=== PATIENT | female | born 1980 | race Caucasian/White ===

== ENCOUNTER 2022-08-15 14:48 | Emergency (ER) | payer MEDICAID ==
[~2022-08-15] VITALS: Ht 162.6 cm; Wt 102.0 kg
[2022-08-15 14:48] VITALS: BP 161/99
[2022-08-15] MEDS ORDERED: sulfamethoxazole/trimethoprim DS (800/160mg) tablet PO ONE (16:20)
[2022-08-15] MEDS ORDERED: cephalexin 250mg capsule PO ONE (16:20)
[2022-08-15] MEDS ORDERED: CEPH-585 PO (16:22)
[2022-08-15] MEDS ORDERED: SULF1TAB45 PO (16:22)
== END 2022-08-15 17:11 | disposition home or self-care (01) ==
LOC: ER 14:49
DX: L03.116 Cellulitis of left lower limb (principal)
CPT/HCPCS: 99283

== ENCOUNTER 2024-08-28 17:27 | Emergency (ER) | payer MEDICAID ==
[~2024-08-28] VITALS: Ht 172.7 cm; Wt 86.4 kg
[2024-08-28 17:28] VITALS: BP 131/86; PULSE 58; TEMP 97; O2SAT 94
[2024-08-28] MEDS ORDERED: HYDR-3965 PO (19:08)
[2024-08-28] MEDS: HYDROcodone/acetaminophen 10/325mg tab PO ONE (19:22)
[2024-08-28] MEDS: ketorolac trometh 15mg/ml vial 15 MG/ML ML IM ONE (19:23)
[2024-08-28 19:29] VITALS: RESP 18
== END 2024-08-28 19:29 | disposition home or self-care (01) ==
LOC: ER 17:28
DX: R07.81 Pleurodynia (principal); W19.XXXA Unspecified fall, initial encounter; Y93.01 Activity, walking, marching and hiking; Y92.89 Other specified places as the place of occurrence of the external cause; Y99.8 Other external cause status
CPT/HCPCS: 71101; 96372; 99284; J1885